=== PATIENT | female | born 1980 | race Caucasian/White ===

== ENCOUNTER 2017-01-02 20:21 | Emergency (ER) | payer BC ==
[~2017-01-02] VITALS: Ht 162.6 cm; Wt 70.3 kg
[~2017-01-02 20:21] MED LIST: ALBU2.5V4; CYCL10TA9 PO; RT-ALBUINH; SULF1TAB35 PO
--- OUTSIDE RECORDS SUMMARY | 2017-01-02 20:26 | XMS REPORT ---
Author Author TANGELA IRVIN [facility] [employer] Address [address] [place] [address] Care Team Providers Care Industrial Sociologist Name Role Phone PATRICKLORINTANGELA Unavailable PROBLEMS Type Condition ICD9-CM Code [id number] Code Onset Dates Condition Status SNOMED Code Problem Cough R05 Active 61056141 Assessment Asthma exacerbation J45.901 Nov, Active 563669045 Problem Asthma exacerbation J45.901 Active 236502325 Problem Routine health maintenance Z00.00 Active 885869726 Problem Family history of diabetes mellitus Z83.3 Active 938508255 Problem Wheezing R06.2 Active 58597370 Problem Moderate persistent asthma without complication J45.40 Active 133168062 Problem Dental caries K02.9 Active 35910923 ALLERGIES Substance Reaction Event Type Date Status Other antibiotics Unknown Non Drug Allergy Nov, Active SOCIAL HISTORY No smoking Hx information available PLAN OF CARE VITAL SIGNS Height 65 in 2015-11-14 Weight 164 lbs 2015-11-14 Heart Rate 80 bpm 2015-11-14 Respiratory Rate 16 2015-11-14 Oximetry 92 % 2015-11-14 BMI 27.29 kg/m2 2015-11-14 Blood pressure systolic 100 mmHg 2015-11-14 Blood pressure diastolic 60 mmHg 2015-11-14 MEDICATIONS Medication Instructions Dosage Frequency Start Date End Date Duration Status Albuterol Sulfate (2.5 MG/3ML) 0.083% Inhalation Three times a day 1 nebule in machine 8h Nov, 10 days Active Ventolin HFA 108 (90 Base) MCG/ACT Inhalation every 4 hrs as needed for shortness of air 2 puffs as needed Nov, 30 days Active PredniSONE 10 mg Orally Once a day 4 tabs x 4days, 3 tabs x 3 days, 2 tabs x 2 days then 1 tab x 1 24h Nov, Nov, 10 days Active RESULTS No Results PROCEDURES Procedure Date Ordered Related Diagnosis Body Site MEASURE BLOOD OXYGEN LEVEL Nov 14, 2015 SOLUMEDROL (UP TO 125 MG) Nov 14, 2015 Office Visit, Est Pt., Level 4 Nov 14, 2015 THER/PROPH/DIAG INJ, SC/IM Nov 14, 2015 NEB/MDI RX INITIAL Nov 14, 2015 IMMUNIZATIONS Vaccine Route Administration Date Status SOLUMEDROL (UP TO 125 MG) IM Intramuscular Nov 14, 2015 Administered
--- OUTSIDE RECORDS SUMMARY | 2017-01-02 20:26 | XMS REPORT ---
Author Author VALENTINE ARNOLD Organization [employer] Address Unknown Phone Unavailable Care Team Providers Care Marine Equipment Research Engineer Name Role Phone VALENTINE ARNOLD CP Unavailable Allergies No Known Allergies Problems Problem Type Condition Code Onset Dates Condition Status Problem Wheezing R06.2 Active Problem Dental caries K02.9 Active Problem Family history of diabetes mellitus Z83.3 Active Assessment Moderate persistent asthma without complication J45.40 Active Problem Cough R05 Active Problem Encounter for screening for malignant neoplasm of cervix Z12.4 Active Problem Encounter for screening breast examination Z12.39 Active Problem Encounter for well woman exam Z01.419 Active Problem Routine health maintenance Z00.00 Active Problem Moderate persistent asthma without complication J45.40 Active Problem Screening for STD (sexually transmitted disease) Z11.3 Active Problem Asthma exacerbation J45.901 Active Medications No Known Medications Procedures Procedure Coding System Code Date NEB/MDI DEMO CPT-4 03806 Feb 04, 2016 SPIROMETRY CPT-4 39087 Feb 04, 2016 RESPIRATORY FLOW VOLUME LOOP CPT-4 01608 Feb 04, 2016 SPRIOMETRY CHALLENGE CPT-4 91118 Feb 04, 2016 Results Name Result Date Reference Range Unit Abnormality Flag PULMONARY EDUCATION (IN-HOUSE) RESPIRATORY FLOW VOLUME LOOP (IN-HOUSE) BRONCHODILATION PRE/POST (IN-HOUSE) Summary Purpose [employer] Submission
--- OUTSIDE RECORDS SUMMARY | 2017-01-02 20:26 | XMS REPORT ---
Author Author VALENTINE ARNOLD Organization [employer] Address Unknown Phone Unavailable Care Team Providers Care Crna Name Role Phone VALENTINE ARNOLD CP Unavailable Allergies No Known Allergies Problems Problem Type Condition Code Onset Dates Condition Status Problem Wheezing R06.2 Active Problem Dental caries K02.9 Active Problem Family history of diabetes mellitus Z83.3 Active Problem Cough R05 Active Problem Encounter for screening for malignant neoplasm of cervix Z12.4 Active Problem Encounter for screening breast examination Z12.39 Active Problem Encounter for well woman exam Z01.419 Active Problem Routine health maintenance Z00.00 Active Problem Moderate persistent asthma without complication J45.40 Active Problem Screening for STD (sexually transmitted disease) Z11.3 Active Problem Asthma exacerbation J45.901 Active Medications Medication Code System Code Instructions Start Date End Date Status Dosage Albuterol Sulfate [facility] [address]-92 (2.5 MG/3ML) 0.083% Inhalation Three times a day Nov 14, 2015 1 nebule in machine Results No Known Results Summary Purpose [employer]ClinicalWorks Submission
--- OUTSIDE RECORDS SUMMARY | 2017-01-02 20:26 | XMS REPORT ---
Author Author VALENTINE ARNOLD Organization [employer] Address Unknown Phone Unavailable Care Team Providers Care Projection Printer Name Role Phone VALENTINE ARNOLD CP Unavailable Allergies, Adverse Reactions, Alerts Substance Reaction Event Type N.K.D.A. Info Not Available Non Drug Allergy Problems Problem Type Condition Code Onset Dates Condition Status Problem Wheezing R06.2 Active Problem Dental caries K02.9 Active Problem Family history of diabetes mellitus Z83.3 Active Problem Encounter for screening for malignant neoplasm of cervix Z12.4 Active Problem Encounter for screening breast examination Z12.39 Active Problem Encounter for well woman exam Z01.419 Active Problem Routine health maintenance Z00.00 Active Problem Moderate persistent asthma without complication J45.40 Active Problem Screening for STD (sexually transmitted disease) Z11.3 Active Problem Asthma exacerbation J45.901 Active Assessment Encounter for screening breast examination Z12.39 Active Assessment Encounter for screening for malignant neoplasm of cervix Z12.4 Active Assessment Diarrhea, unspecified type R19.7 Active Assessment Encounter for well woman exam Z01.419 Active Assessment Screening for STD (sexually transmitted disease) Z11.3 Active Problem Cough R05 Active Medications Medication Code System Code Instructions Start Date End Date Status Dosage Albuterol Sulfate [facility] [address]-95 (2.5 MG/3ML) 0.083% Inhalation Three times a day Nov 14, 2015 1 nebule in machine Metronidazole [facility] [address]-23 500 MG Orally Twice a day Dec 20, 2015 Dec 27, 2015 1 tablet Ventolin HFA [facility] [address]-47 108 (90 Base) MCG/ACT Inhalation every 4 hrs as needed for shortness of air Nov 14, 2015 2 puffs as needed Procedures Procedure Coding System Code Date CULTURE, BACTERIA, OTHER CPT-4 79333 Dec 20, 2015 TRICHOMONAS ASSAY W/OPTIC CPT-4 01622 Dec 20, 2015 SPECIMEN HANDLING CPT-4 56524 Dec 20, 2015 No Charge CPT-4 98340 Dec 20, 2015 PAZ VAG, DNA, DIR PROBE CPT-4 55575 Dec 20, 2015 Preventive Care Est Pt. Age 18-39 CPT-4 14522 Dec 20, 2015 Vital Signs Date/Time: Dec 20, 2015 Cardiac Monitoring Heart Rate 77 bpm Weight 168.2 lbs Height 65 in BMI 27.99 Index Blood Pressure Diastolic 84 mmHg Blood Pressure Systolic 122 mmHg Results Name Result Date Reference Range Unit Abnormality Flag BACTERIAL VAGINOSIS (IN HOUSE) ----Lot # [id number] ----Exp date 20151220 ----RESULTS Negative 20151220 ----Control + 20151220 TRICHOMONAS (IN HOUSE) ----TRICHOMONAS Negative 20151220 ----Control + 20151220 ----Lot # [id number] ----Exp date 20151220 CULTURE, GENITAL ----Genital Culture, Routine Final report [id number] Summary Purpose [employer]Works Submission
--- OUTSIDE RECORDS SUMMARY | 2017-01-02 20:26 | XMS REPORT ---
Author Author CLAYTON VALENTINE Organization [facility] Address [address] [place] [address] Care Team Providers Care Industrial Gas Fitter Name Role Phone ARNOLDVALENTINE Vides Unavailable PROBLEMS Type Condition ICD9-CM Code DPV22-ZP Code Onset Dates Condition Status SNOMED Code Problem Cough R05 Active 71413642 Assessment Routine health maintenance Z00.00 16 Nov, 2015 Active 026563093 Problem Asthma exacerbation J45.901 Active 729622166 Problem Routine health maintenance Z00.00 Active 422205119 Problem Family history of diabetes mellitus Z83.3 Active 435016420 Problem Wheezing R06.2 Active 87598621 Problem Moderate persistent asthma without complication J45.40 Active 515523176 Problem Dental caries K02.9 Active 77990907 ALLERGIES Substance Reaction Event Type Date Status N.K.D.A. Unknown Non Drug Allergy Nov, Unknown SOCIAL HISTORY No smoking Hx information available PLAN OF CARE VITAL SIGNS Height 65 in 2015-11-22 Weight 164.6 lbs 2015-11-22 Heart Rate 76 bpm 2015-11-22 Respiratory Rate 16 2015-11-22 Oximetry 99 % 2015-11-22 BMI 27.39 kg/m2 2015-11-22 Blood pressure systolic 118 mmHg 2015-11-22 Blood pressure diastolic 80 mmHg 2015-11-22 MEDICATIONS Medication Instructions Dosage Frequency Start Date End Date Duration Status PredniSONE 10 mg Orally Once a day 4 tabs x 4days, 3 tabs x 3 days, 2 tabs x 2 days then 1 tab x 1 24h Nov, Nov, 10 days Active Ventolin HFA 108 (90 Base) MCG/ACT Inhalation every 4 hrs as needed for shortness of air 2 puffs as needed Nov, 30 days Active Clindamycin HCl 150 MG Orally every 8 hrs 2 capsules 8h Active Hydrocodone-Acetaminophen 5-325 MG Orally every 6 hrs 1 tablet as needed 6h Active Albuterol Sulfate (2.5 MG/3ML) 0.083% Inhalation Three times a day 1 nebule in machine 8h Nov, 10 days Active RESULTS No Results PROCEDURES Procedure Date Ordered Related Diagnosis Body Site MEASURE BLOOD OXYGEN LEVEL Nov 22, 2015 Office Visit, Est Pt., Level 3 Nov 22, 2015 IMMUNIZATIONS No Known Immunizations
--- OUTSIDE RECORDS SUMMARY | 2017-01-02 20:26 | XMS REPORT ---
Author Author TANGELA IRVIN [facility] [employer] Address [address] [place] [address] Care Team Providers Care Child Welfare Worker Name Role Phone TANGELA IRVIN Unavailable PROBLEMS Type Condition ICD9-CM Code AOU10-WQ Code Onset Dates Condition Status SNOMED Code Problem Cough R05 Active 53290885 Problem Asthma exacerbation J45.901 Active 281180273 Problem Routine health maintenance Z00.00 Active 944316725 Problem Family history of diabetes mellitus Z83.3 Active 440182623 Problem Wheezing R06.2 Active 05999110 Problem Moderate persistent asthma without complication J45.40 Active 683097748 Problem Dental caries K02.9 Active 12328711 ALLERGIES Unknown Allergies SOCIAL HISTORY No smoking Hx information available PLAN OF CARE VITAL SIGNS MEDICATIONS Unknown Medications RESULTS No Results PROCEDURES No Known procedures IMMUNIZATIONS No Known Immunizations
--- OUTSIDE RECORDS SUMMARY | 2017-01-02 20:26 | XMS REPORT ---
Author Author CLAYTONEVELYNVALENTINE Organization [facility] Address [address] [place] [address] Care Team Providers Care Rug Designer Name Role Phone ARNOLDVALENTINE Vides Unavailable PROBLEMS Type Condition ICD9-CM Code [id number] Code Onset Dates Condition Status SNOMED Code Problem Dental caries K02.9 Active 46249835 Problem Encounter for well woman exam Z01.419 Active 530121421 Problem Family history of diabetes mellitus Z83.3 Active 656688800 Problem Routine health maintenance Z00.00 Active 303385357 Problem Moderate persistent asthma with acute exacerbation J45.41 Active 059681772898836 Problem Seasonal allergic rhinitis due to pollen J30.1 Active 31867632 Problem Screening for STD (sexually transmitted disease) Z11.3 Active 680211251 Problem Encounter for screening breast examination Z12.39 Active 135848350 Problem Allergic rhinitis with acute exacerbation of asthma without status asthmaticus J45.901 Active 98458286 Problem Encounter for screening for malignant neoplasm of cervix Z12.4 Active 242729847 ALLERGIES Substance Reaction Event Type Date Status N.K.D.A. Unknown Non Drug Allergy Mar, Unknown SOCIAL HISTORY No smoking Hx information available PLAN OF CARE Activity Details Follow Up 4 Weeks Reason:asthma follow up VITAL SIGNS Height 65 in 2016-03-27 Weight 163.0 lbs 2016-03-27 Temperature 98.0 degrees Fahrenheit 2016-03-27 Heart Rate 94 bpm 2016-03-27 Respiratory Rate 22 2016-03-27 Oximetry after breathing treatment:100 % 2016-03-27 BMI 27.12 kg/m2 2016-03-27 Blood pressure systolic 120 mmHg 2016-03-27 Blood pressure diastolic 76 mmHg 2016-03-27 MEDICATIONS Medication Instructions Dosage Frequency Start Date End Date Duration Status Albuterol Sulfate (2.5 MG/3ML) 0.083% Inhalation Three times a day if needed 3 ml Mar, 6 Months Active Ventolin HFA 108 (90 Base) MCG/ACT Inhalation every 4 hrs 2 puffs as needed 4h Mar, 6 Months Active Qvar 40 MCG/ACT Inhalation Twice a day 1 puff 12h Mar, May, 6 Months Active Singulair 10 mg Orally Once a day 1 tablet in the evening 24h Mar, 90 days Active Ventolin HFA 108 (90 Base) MCG/ACT Inhalation every 4 hrs as needed for shortness of air 2 puffs as needed Nov, 30 days Active Albuterol Sulfate (2.5 MG/3ML) 0.083% Inhalation Three times a day 1 nebule in machine 8h 9 Active Cetirizine HCl 10 MG Orally Once a day 1 tablet 24h Mar, 30 day (s) Active RESULTS No Results PROCEDURES Procedure Date Ordered Related Diagnosis Body Site NEBULIZER TREATMENT 2016-03-27 N/A MEASURE BLOOD OXYGEN LEVEL Mar 27, 2016 Office Visit, Est Pt., Level 3 Mar 27, 2016 NEB/MDI RX INITIAL Mar 27, 2016 IMMUNIZATIONS No Known Immunizations
--- OUTSIDE RECORDS SUMMARY | 2017-01-02 20:27 | XMS REPORT ---
Author Author CLAYTON VALENTINE Organization [facility] Address [address] [place] [address] Care Team Providers Care Sales Forecast Analyst Name Role Phone ARNOLDVALENTINE Vides Unavailable PROBLEMS Type Condition ICD9-CM Code NKF69-OO Code Onset Dates Condition Status SNOMED Code Problem Screening for STD (sexually transmitted disease) Z11.3 Active 388848144 Problem Encounter for screening breast examination Z12.39 Active 243957939 Problem GERD without esophagitis K21.9 Active 836142030 Problem Moderate persistent asthma with acute exacerbation J45.41 Active 559160653285803 Problem Encounter for well woman exam Z01.419 Active 824345763 Problem Encounter for screening for malignant neoplasm of cervix Z12.4 Active 525119654 Problem Seasonal allergic rhinitis due to pollen J30.1 Active 12859361 Problem Allergic rhinitis with acute exacerbation of asthma without status asthmaticus J45.901 Active 26703264 ALLERGIES No Information SOCIAL HISTORY Never Assessed PLAN OF CARE VITAL SIGNS MEDICATIONS Medication Instructions Dosage Frequency Start Date End Date Duration Status Tamiflu 75 MG Orally Twice a day 1 capsule 12h May, 5 day(s) Active Zofran ODT 4 MG Orally 2 times a day 1 tablet on the tongue and allow to dissolve 12h May, 5 days Active RESULTS No Results PROCEDURES No Known procedures IMMUNIZATIONS No Known Immunizations MEDICAL (GENERAL) HISTORY Type Description Date Medical History Asthma Medical History Bronchitis Medical History Pet allergies Medical History Seasonal Allergies Surgical History Tubal ligation 04/2003 Hospitalization History childbirth only
--- OUTSIDE RECORDS SUMMARY | 2017-01-02 20:28 | XMS REPORT | Continuity of Care Document ---
Author Author [facility] Address Unknown Phone Unavailable Allergies Medications Problems Date Dx Coded Attending Type Code Diagnosis Diagnosed By 10/04/2007 466.0 BRONCHITIS, ACUTE 10/04/2007 LAUREN PISANO DO 466.0 BRONCHITIS, ACUTE 10/04/2007 [employer]CH SALES AND SERVICE REPRESENTATIVE, SELENE R 466.0 BRONCHITIS, ACUTE 10/04/2007 [employer] SALES AND SERVICE REPRESENTATIVE, SELENE R 466.0 BRONCHITIS, ACUTE 08/31/2008 V06.5 DT, TETANUS-DIPHTHERIA [Td] 08/31/2008 LAUREN PISANO DO V06.5 DT, TETANUS-DIPHTHERIA [Td] 08/31/2008 [employer] BRANCH SALES AND SERVICE REPRESENTATIVE, SELENE R V06.5 DT, TETANUS-DIPHTHERIA [Td] 08/31/2008 DEL BRANCH SALES AND SERVICE REPRESENTATIVE, SELENE R V06.5 DT, TETANUS-DIPHTHERIA [Td] 04/21/2010 034.0 STREPTOCOCCAL SORE THROAT 04/21/2010 780.60 FEVER UNSPECIFIED 04/21/2010 LAUREN PISANO DO 034.0 STREPTOCOCCAL SORE THROAT 04/21/2010 LAUREN PISANO DO 780.60 FEVER UNSPECIFIED 04/21/2010 [employer] SALES AND SERVICE REPRESENTATIVE, SELENE R 034.0 STREPTOCOCCAL SORE THROAT 04/21/2010 [employer] SALES AND SERVICE REPRESENTATIVE, SELENE R 780.60 FEVER UNSPECIFIED 04/21/2010 [employer] BR[employer] SALES AND SERVICE REPRESENTATIVE, SELENE R 034.0 STREPTOCOCCAL SORE THROAT 04/21/2010 [employer] SALES AND SERVICE REPRESENTATIVE, SELENE R 780.60 FEVER UNSPECIFIED 07/18/2012 786.07 WHEEZING 07/18/2012 786.2 COUGH 07/18/2012 LAUREN PISANO DO 786.07 WHEEZING 07/18/2012 LAUREN PISANO DO 786.2 COUGH 07/18/2012 [employer] SALES AND SERVICE REPRESENTATIVE, SELENE R 786.07 WHEEZING 07/18/2012 [employer] BR[employer] SALES AND SERVICE REPRESENTATIVE, SELENE R 786.2 COUGH 07/18/2012 [employer] SALES AND SERVICE REPRESENTATIVE, SELENE R 786.07 WHEEZING 07/18/2012 SELENE MATHIS APRN 786.2 COUGH 05/19/2013 SELENE MATHIS APRN 719.46 PAIN IN JOINT INVOLVING LOWER LEG 05/19/2013 SELENE MATHIS APRN 719.46 PAIN IN JOINT INVOLVING LOWER LEG 06/23/2013 SELENE MATHIS APRN 709.9 UNSPECIFIED DISORDER OF SKIN AND SUBCUTANEOUS TISSUE Procedures Code [place] [address] OXIMETRY 2012 71447 ROUTINE VENIPUNCTURE 01/20/2013 66922 CBC 01/20/2013 02363 MYCOPLASMA ANTIBODY 01/20/2013 Results Encounters ACCT No. Visit Date/Time Discharge Status Pt. Type Provider Facility Loc./Unit Complaint [id number] 06/23/2013 13:52:00 06/23/2013 23: 59:59 [facility] Outpatient SELENE MATHIS APRN [id number] 05/19/2013 11:44:00 05/19/2013 23: 59:59 [facility] Outpatient SELENE MATHIS APRN [id number] 01/20/2013 13:43:00 01/20/2013 23: 59:59 [facility] Outpatient LAUREN PISANO DO [id number] 07/18/2012 14:36:00 Document Registration
--- NOTE | 2017-01-02 20:29 | ED Upper Extremity ---
General Stated Complaint: L ELBOW PAIN FROM FALL Source: patient Exam Limitations: no limitations History of Present Illness Time seen by provider: 20:28 Initial Comments To ER with history of left elbow pain that began just prior to arrival when she was mopping the floor and slipped in some wet water. She is unable to flex her arm and keeps it fully extended. Onset: just prior to arrival Severity: moderate Pain/Injury Location: left elbow Method of Injury: fell Modifying Factors: Worse With Movement Allergies and Home Medications Allergies Coded Allergies: No Known Drug Allergies (Unverified , 01/25/16) Home Medications Albuterol Sulfate 18 Gm Hfa.aer.ad, #18 (Reported) Albuterol Sulfate 2.5 Mg/3 Ml Vial.neb, #75 (Reported) Beclomethasone Dipropionate 8.7 Gm Aer.w.adap, (Reported) Montelukast Sodium 10 Mg Tablet, (Reported) Omeprazole 20 Mg Capsule., (Reported) Constitutional: see HPI EENTM: see HPI Respiratory: no symptoms reported Cardiovascular: no symptoms reported Genitourinary: no symptoms reported Musculoskeletal: see HPI Skin: no symptoms reported Psychiatric/Neurological: No Symptoms Reported Past Judlyii-Ppvakr-Nzbtwz Hx Patient Social History Recent Foreign Travel: No Contact w/Someone Who Travel: No Recent Hopitalizations: No Immunizations Up To Date Tetanus Booster (TDap): Unknown Seasonal Allergies Seasonal Allergies: No Surgeries Surgeries: Tubal Ligation Respiratory Respiratory Disorders: Asthma, Chronic Bronchitis Currently Using CPAP: No Currently Using BIPAP: No Reproductive System Hx Reproductive Disorders: No EXPENSE ANALYST History: Tubal Ligation Physical Exam Vital Signs Vital Sign - Last 12Hours 01/02/17 20:25 Temp 92.2 Pulse 89 Resp 20 B/P (MAP) 143/94 Pulse Ox 94 O2 Delivery Room Air Capillary Refill : General Appearance: WD/WN, no apparent distress HEENT: PERRL/EOMI, normal ENT inspection Neck: non-tender, full range of motion Respiratory: no respiratory distress, no accessory muscle use Gastrointestinal: non tender, soft Shoulder: normal inspection Elbow/Forearm: Left, limited ROM, pain, soft tissue tenderness Wrist: Yes normal inspection, Yes non-tender Hand: normal inspection, non-tender, Left Neurologic/Psychiatric: alert, normal mood/affect, oriented x 3 Skin: normal color, warm/dry Progress/Results/Core Measures Results/Orders My Orders Orders - SHELBIE THORNTON APRN Elbow, Left, 3 Views (01/02/17 20:28) Hydrocodone/Apap 5/325 Tablet (Lortab 5 (01/02/17 20:30) Medications Given in ED Current Medications Medications Dose Ordered Sig/Marla Route Start Time Stop Time Status Last Admin Dose Admin Acetaminophen/ Hydrocodone Bitart 1 tab ONCE ONCE PO 01/02/17 20:30 01/02/17 20:31 DC 01/02/17 20:34 1 TAB Vital Signs/I&O Vital Sign - Last 12Hours 01/02/17 20:25 Temp 92.2 Pulse 89 Resp 20 B/P (MAP) 143/94 Pulse Ox 94 O2 Delivery Room Air Departure Impression Impression: Primary Impression: Elbow contusion Disposition: HOME, SELF-CARE Condition: Stable Departure-Patient Inst. Decision time for Depature: 20:29 Referrals: [facility] (PCP/Family) Primary Care Physician Patient Instructions: Contusion (DC) Add. Discharge Instructions: 1. Use Tylenol and Motrin for pain. Use an ice pack to the elbow as needed to help with pain. Use this for 30 minutes about every 1-2 hours. Wear the sling as needed for comfort. If you have persistent pain next week follow-up with your doctor for repeat imaging. SHELBIE THORNTON APRN Jan 02, 2017 20:29
[2017-01-02] MEDS ORDERED: HYDROcodone/APAP 5 MG/325 MG (LORTAB) TAB PO ONE (20:30)
--- NOTE | 2017-01-02 20:46 | Diagnostic Imaging Report ---
INDICATION: Fall. FINDINGS: 3 views show good alignment of the radius and normal. Articulating surfaces are smooth. Joint spaces are well maintained. There are no fractures. No joint effusion. IMPRESSION: Normal left elbow. Dictated by: Dictated on workstation # [id number]
[2017-01-02] MEDS ORDERED: BECL8.7A6 (20:47)
[2017-01-02] MEDS ORDERED: OMEP20CA12 (20:47)
[2017-01-02] MEDS ORDERED: MONT10TA24 (20:47)
[2017-01-02 20:58] VITALS: BP 143/94
== END 2017-01-02 20:58 | disposition home or self-care (01) ==
LOC: EDUNIT# 20:21 → ER 20:22
DX: S50.02XA Contusion of left elbow, initial encounter (principal); J44.9 Chronic obstructive pulmonary disease, unspecified; Z98.51 Tubal ligation status; W01.0XXA Fall on same level from slipping, tripping and stumbling without subsequent striking against object, initial encounter; Y93.E5 Activity, floor mopping and cleaning
CPT/HCPCS: 73080; 99283

== ENCOUNTER → 2017-07-03 | Outpatient (CLI) | payer BC ==
[~2017-07-03] MED LIST changes: +BECL8.7A6; +MONT10TA24; +OMEP20CA12
--- NOTE | 2017-07-03 14:53 | Diagnostic Imaging Report ---
PROCEDURE: MRI lumbar spine. TECHNIQUE: Multiplanar, multisequence MRI of the lumbar spine was performed without contrast. INDICATION: Back pain. There are no prior studies available for comparison. FINDINGS: The T2 sagittal images show the vertebral body heights and alignment to be generally within normal limits. There is mild desiccation of the disc at L4-L5 and L5-S1 and the disc space at L5-S1 is narrowed. There is a slight disc bulge centrally at L5-S1. The disc effaces the ventral aspect of the thecal sac and narrows the AP diameter to approximately 12.9 mm. There is moderate neural foraminal narrowing on the right at L5-S1 and mild neural foraminal narrowing on the left. There is also a disc bulge essentially at the L4-L5 level. The AP diameter of thecal sac measures 11.2 mm. There does not appear to be any significant neural foraminal narrowing at this level. The remainder of the lumbar spine is unremarkable for spinal stenosis or nerve root encroachment. There is no abnormal signal arising from the cord or the vertebral bodies to indicate an acute abnormality. There is no sign of a paraspinal mass. IMPRESSION: 1. There is moderate degenerative disc disease at L4-L5 and L5-S1. There is no evidence for central stenosis at either of these levels, but there does seem to be narrowing of the neural foramen on the right at L5-S1. 2. The remainder of the lumbar spine is unremarkable for spinal stenosis or nerve root encroachment. 3. There is no sign of an acute bony abnormality or cord lesion. Dictated by: Dictated on workstation # [id number]
== END ==
LOC: RAD 12:42
PROVIDERS: ATTEND Nurse Practitioner Family
DX: M51.17 Intervertebral disc disorders with radiculopathy, lumbosacral region (principal)
CPT/HCPCS: 72148

== ENCOUNTER 2018-03-19 13:47 | Emergency (ER) | payer BC, OTHER ==
[~2018-03-19] VITALS: Ht 162.6 cm; Wt 63.5 kg
--- NOTE | 2018-03-19 14:17 | ED Upper Extremity ---
General Chief Complaint: Upper Extremity Stated Complaint: LEFT HAND SMASHED IN DOOR Nursing Triage Note: THE PT IS AMBULATORY TO THE ROOM WITHOUT DIFFICULTY. NO DISTRESS IS SEEN ON ARRIVAL. NO OUTWARD SX OF INJURY ARE VISIBLE TO THE LEFT HAND. LOC IS NORMAL FOR THE PT. Nursing Sepsis Screen: No Definite Risk Source: patient Exam Limitations: no limitations History of Present Illness Date Seen by Provider: Mar 19, 2018 Time Seen by Provider: 13:50 Initial Comments Patient is a 38-year-old female who presents to the emergency room with complaints of left hand pain after closing her left hand door. She reports that the door closed just across to her hand at the base of her fingers. There is no visible ecchymosis or abrasions to the hand. Denies need for pain medication at this time. Onset: just prior to arrival Pain/Injury Location: left hand Modifying Factors: Worse With Movement Allergies and Home Medications Allergies Coded Allergies: No Known Drug Allergies (Unverified , 01/25/16) Patient Home Medication List Home Medication List Reviewed: Yes Review of Systems Constitutional: no symptoms reported, see HPI Musculoskeletal: see HPI, joint pain (left hand pain) All Other Systems Reviewed Negative Unless Noted: Yes Past Kltdlhl-Finijv-Ucpasx Hx Past Med/Social Hx: Reviewed Nursing Past Med/Soc Hx Patient Social History Recent Foreign Travel: No Contact w/Someone Who Travel: No Recent Infectious Disease Expo: No Recent Hopitalizations: No Physical Abuse: No Sexual Abuse: No Mistreated: No Fear: No Immunizations Up To Date Tetanus Booster (TDap): Unknown Seasonal Allergies Seasonal Allergies: No Past Medical History Surgeries: No Tubal Ligation Respiratory: Yes Asthma, Chronic Bronchitis Currently Using CPAP: No Currently Using BIPAP: No Cardiac: No Neurological: No Reproductive Disorders: No 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 oz. 63.826172tg; BMI Method:Estimated General Appearance: WD/WN, no apparent distress Cardiovascular: normal peripheral pulses, regular rate, rhythm, no edema, no gallop, no JVD, no murmur Respiratory: chest non-tender, lungs clear, normal breath sounds, no respiratory distress, no accessory muscle use Hand: Left, swelling (pain) Neurologic/Psychiatric: alert, normal mood/affect, oriented x 3 Skin: normal color, warm/dry Progress/Results/Core Measures Results/Orders My Orders Vital Signs/I&O Blood Pressure Mean: 93 Diagnostic Imaging Diagonstic Imaging: Xray Plain Films/CT/US/NM/MRI: hand Comments NAME: BRENDON LAUREN [facility] REC#: [id number] PT STATUS: REG ER : 1980 PHYSICIAN: WALE DURHAM ADMIT DATE: 03/19/18/ER Draft Date of Exam:03/19/18 HAND, LEFT, 3 VIEWS INDICATION: Left hand shut in a door. EXAMINATION: Left hand 03/19/2018. Three views of the hand. findings and IMPRESSION: No acute fractures or dislocations. Joint spaces preserved. Dictated on workstation # [id number] Dict: 03/19/18 1421 Trans: 03/19/18 1432 KB [id number] Interpreted by: RYANNE ENRIQUEZ MD Electronically signed by: Reviewed: Reviewed by Me Departure Impression Primary Impression: Contusion of left hand Disposition: HOME, SELF-CARE Condition: Stable/Unchanged Departure-Patient Inst. Decision time for Depature: 14:16 Ref[place]: [facility] [place] Primary Care Physician Patient Instructions: Contusion (DC) Add. Discharge Instructions: Ice to the sore areas at 20 minute intervals. Ibuprofen and Tylenol as directed by the bottle for pain relief. Follow-up with primary care provider as needed. Return back to the emergency room for any worsening symptoms or concerns as needed. All discharge instructions reviewed with patient and/or family. Voiced understanding. WALE DURHAM Mar 19, 2018 14:17
--- NOTE | 2018-03-19 14:37 | Diagnostic Imaging Report ---
INDICATION: Left hand shut in a door. EXAMINATION: Left hand 03/19/2018. Three views of the hand. findings and IMPRESSION: No acute fractures or dislocations. Joint spaces preserved. Dictated by: Dictated on workstation # [id number]
[2018-03-19 14:50] VITALS: BP 115/80
== END 2018-03-19 14:53 | disposition home or self-care (01) ==
LOC: EDUNIT# 13:47 → ER 13:49
DX: S60.222A Contusion of left hand, initial encounter (principal); J44.9 Chronic obstructive pulmonary disease, unspecified; Z98.51 Tubal ligation status; W23.1XXA Caught, crushed, jammed, or pinched between stationary objects, initial encounter
CPT/HCPCS: 73130

== ENCOUNTER 2018-12-04 08:15 | Emergency (ER) | payer BC ==
[~2018-12-04] VITALS: Ht 165.1 cm; Wt 77.2 kg
[~2018-12-04 08:15] MED LIST changes: -OMEP20CA12; +OMEP20CA13
[2018-12-04] MEDS ORDERED: ORPHENADRINE 60 MG/2 ML (NORFLEX) AMP IM STA (08:51)
[2018-12-04] MEDS ORDERED: KETOROLAC 60 MG/2 ML VIAL IM STA (08:51)
--- NOTE | 2018-12-04 08:59 | ED Back Pain ---
General Chief Complaint: Back Problems Stated Complaint: BACK PAIN Nursing Triage Note: Pt to ED in wheelchair. Pt reports waking up this morning and having severe back pain making pt unable to walk without assistance. Pt reports pain is in lower back radiating down L leg. Pt reports hx of spinal stenosis. Pt reports pain of 35/10. Pt denies injury or strain. Nursing Sepsis Screen: No Definite Risk Source of Information: Patient Exam Limitations: No Limitations (ESSENCE RICHARDSON STUDENT) History of Present Illness Date Seen by Provider: Dec 04, 2018 Time Seen by Provider: 08:45 Initial Comments The patient is a 38 y/o female who is here with a chief complaint of low back pain. She reports that she woke up this morning with severe back pain in her lower back that radiates into her left hip. She describes the pain as sharp and stabbing at 10/10. She has had previous bouts of back pain but "never this serious". The patient denies any recent overuse or trauma but does report "cleaning up the yard yesterday". She denies numbness/tingling, loss of strength, loss of bowel/bladder, or recent illnesses. Location: Lumbar Spine Timing/Duration: 1-3 Hours Severity: Moderate Pain/Injury Location: Back Radiation: Buttocks Method of Injury: Unknown Modifying Factors: Worse With Movement Associated Symptoms: No fever, No weakness, No numbness in legs/feet, No ting ling in legs/feet (ESSENCE RICHARDSON STUDENT) Location: Lumbar Spine, Paraspinous Muscles Timing/Duration: 1-3 Hours Severity: Moderate Radiation: Buttocks Method of Injury: Unknown Modifying Factors: Worse With Movement Associated Symptoms: muscle spasms; No fever, No weakness, No numbness in legs/feet, No tingling in legs/feet; lower back pain; No loss of bladder control, No loss of bowel control (SAQIB PEGUERO MD) Allergies and Home Medications Allergies Coded Allergies: No Known Drug Allergies (Unverified , 01/25/16) Patient Home Medication List Home Medication List Reviewed: Yes (SAQIB PEGUERO MD) Review of Systems Constitutional: No fever, No weakness EENTM: No blurred vision, No double vision Cardiovascular: No chest pain, No palpitations Gastrointestinal: No diarrhea, No nausea, No vomiting Genitourinary: No dysuria, No incontinence Musculoskeletal: back pain; No muscle weakness (ESSENCE RICHARDSON STUDENT) Constitutional: see HPI Respiratory: no symptoms reported Cardiovascular: no symptoms reported Gastrointestinal: no symptoms reported Musculoskeletal: see HPI, back pain, muscle pain; No muscle weakness Skin: no symptoms reported Psychiatric/Neurological: No Symptoms Reported (SAQIB PEGUERO MD) Past Ewajzqa-Xrsopn-Jvtcwa Hx Past Med/Social Hx: Reviewed Nursing Past Med/Soc Hx (SAQIB PEGUERO MD) Patient Social History Alcohol Use: Denies Use Recreational Drug Use: No Smoking Status: Never a Smoker 2nd Hand Smoke Exposure: No Recent Foreign Travel: No Contact w/Someone Who Travel: No Recent Infectious Disease Expo: No Recent Hopitalizations: No Physical Abuse: No Sexual Abuse: No (ESSENCE RICHARDSON) Immunizations Up To Date Tetanus Booster (TDap): Unknown (ESSENCE RICHARDSON) Seasonal Allergies Seasonal Allergies: No (ESSENCE RICHARDSON) Past Medical History Surgeries: No Tubal Ligation Respiratory: Yes Asthma, Chronic Bronchitis Currently Using CPAP: No Currently Using BIPAP: No Cardiac: No Neurological: No Last Menstrual Period: Dec 02, 2018 Reproductive Disorders: No 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 oz. 63.749621nl; 28.00 BMI Method:Estimated General Appearance: WD/WN, Mild Distress HEENT: PERRL/EOMI; No Photophobia Cardiovascular: Regular Rate, Rhythm, No Murmur Respiratory: Chest Non Tender, Lungs Clear, Normal Breath Sounds Back: No CVA Tenderness, Decreased Range of Motion Neurologic/Psychiatric: Alert, Oriented x3, No Motor/Sensory Deficits, Normal Mood/Affect Skin: Normal Color, Warm/Dry (ESSENCE RICHARDSON MED STUDENT) General Appearance: WD/WN, Mild Distress Cardiovascular: Regular Rate, Rhythm, No Murmur Respiratory: Lungs Clear, Normal Breath Sounds Back: No CVA Tenderness, Muscle Spasm (paraspinous on the left), Other (tenderness in the area of the left SI joint.) Neurologic/Psychiatric: Alert, Oriented x3 Skin: Normal Color, Warm/Dry (SAQIB PEGUERO MD) Progress/Results/Core Measures Results/Orders Lab Results Laboratory Tests Test 12/04/18 09:20 Range/Units Urine Color YELLOW Urine Clarity CLEAR Urine pH 7 5-9 Urine Specific [place] 1.010 L 1.016-1.022 Urine Protein NEGATIVE NEGATIVE Urine Glucose (UA) NEGATIVE NEGATIVE Urine Ketones NEGATIVE NEGATIVE Urine Nitrite NEGATIVE NEGATIVE Urine Bilirubin NEGATIVE NEGATIVE Urine Urobilinogen NORMAL NORMAL MG/DL Urine Leukocyte Esterase NEGATIVE NEGATIVE Urine RBC (Auto) 1+ H NEGATIVE Urine RBC 5-10 H /HPF Urine WBC NONE /HPF Urine Squamous Epithelial Cells 25-50 H /HPF Urine Crystals NONE /LPF Urine Bacteria NEGATIVE /HPF Urine Casts NONE /LPF Urine Mucus MODERATE H /LPF Urine Culture Indicated NO (SAQIB PEGUERO MD) My Orders Orders - SAQIB PEGUERO MD Ua Culture If Indicated (12/04/18 08:21) Straight Cath For Spec.-Adult (12/04/18 08:51) Hydrocodone/Apap 5/325 Tablet (Lortab 5 (12/04/18 09:00) Ketorolac Injection (Toradol Injection) (12/04/18 08:51) Orphenadrine Injection (Norflex Injectio (12/04/18 08:51) Ondansetron Oral Dissolve Tab (Zofran (12/04/18 09:39) Ondansetron Oral Dissolve Tab (Zofran (12/04/18 09:40) Ed Iv/Invasive Line Start (12/04/18 09:52) Ns Iv 1000 Ml (Sodium Chloride 0.9%) (12/04/18 09:52) (SAQIB PEGUERO MD) Medications Given in ED Current Medications Medications Dose Ordered Sig/Marla Route Start Time Stop Time Status Last Admin Dose Admin Acetaminophen/ Hydrocodone Bitart 1 tab ONCE ONCE PO 12/04/18 09:00 12/04/18 09:01 DC 12/04/18 08:59 1 TAB Sodium Chloride 1,000 ml @ 0 mls/hr Q0M ONCE IV 12/04/18 09:52 12/04/18 09:53 DC 12/04/18 09:57 1,000 MLS/HR (SAQIB PEGUERO MD) Vital Signs/I&O 12/04/18 08:19 Temp 37.5 Pulse 83 Resp 20 B/P (MAP) 131/89 (103) Pulse Ox 93 O2 Delivery Room Air (SAQIB PEGUERO MD) Blood Pressure Mean: 103 Progress Progress Note : Progress Note The patient is resting in the exam room in mild discomfort. She will be administered torodol, cyclobenzaprine, and hydrocodone for pain control. The nurse will straight cath the patient due to contaminated urine specimen. UA to rule out UTI. (ESSENCE RICHARDSON MED STUDENT) Progress Note : Progress Note I have seen and evaluated the patient and agree with above except as indicated. Directed the plan of care. Patient is here with acute low back pain that she noted this morning when she woke up. Denies any recent injury. Denies fever or chills. Denies bowel or bladder incontinence or other concerns. She has not had pain this bad before but states that she does get back pain. She had an MRI of the lumbar spine last year in those results were reviewed by me. Does have temp of 37.5C. We will go ahead and check a UA. Patient is on her period and had significant contamination on clean catch. We will go ahead and do straight catheter specimen. Toradol 60 mg IM, Norflex 60 mg IM and hydrocodone 5/325 one tab by mouth given. Monitor patient. 0956: Patient got nauseated after hydrocodone. Sublingual ondansetron given and ultimately IV started and we will give liter of normal saline. Overall she is feeling better currently. Anticipate discharge when fluids complete. 1032: Discharged home with return precautions. Patient verbalize understanding instructions and agreement with plan. We did discuss potential for steroids. We will hold that at this point and she agrees. Conservative therapy. Recheck in clinic later this week. (SAQIB PEGUERO MD) Departure Impression Primary Impression: Lumbar radiculopathy Disposition: 01 HOME, SELF-CARE Condition: Stable Departure-Patient Inst. Decision time for Depature: 09:56 (ASQIB PEGUERO MD) Referrals: [facility] [place] (PCP/Family) Primary Care Physician Patient Instructions: Radiculopathy (DC), Low Back Pain (DC) Add. Discharge Instructions: All discharge instructions reviewed with patient and/or family. Voiced understanding. Drink plenty of fluids. Follow-up with your doctor in a few days for recheck. You may take ibuprofen 600 mg every 8 hours as needed for pain. You may also take Tylenol/acetaminophen 1000 mg every 8 hours as needed for pain. You may use [id number] Icy Hot with lidocaine patches, Aspercreme with lidocaine patches, Salonpas with lidocaine patches or similar items to area of concern per package directions. Return for worse pain, weakness, numbness between your legs, difficulty with walking or going to the bathroom or other concerns as needed. Copy Copies To 1: LAUREN PISANO JOSHUA K MED STUDENT Dec 04, 2018 08:58 SAQIB PEGUREO MD Dec 04, 2018 09:18
[2018-12-04] MEDS ORDERED: HYDROcodone/APAP 5 MG/325 MG (LORTAB) TAB PO ONE (09:00)
[2018-12-04 09:29] LABS: BILIRUBIN,URINE NEGATIVE (NEGATIVE); CLARITY,URINE CLEAR; COLOR,URINE YELLOW; GLUCOSE, URINE (UA) NEGATIVE (NEGATIVE); KETONES,URINE NEGATIVE (NEGATIVE); LEUKOCYTE ESTERASE ,URINE NEGATIVE (NEGATIVE); NITRITE,URINE NEGATIVE (NEGATIVE); PH,URINE 7 (5-9); PROTEIN,URINE NEGATIVE (NEGATIVE); UROBILINOGEN,URINE NORMAL (NORMAL)
[2018-12-04 09:39] LABS: BACTERIA,URINE NEGATIVE /HPF; SQUAMOUS EPITHELIAL CELL,UR 25-50 /HPF
[2018-12-04] MEDS ORDERED: ONDANSETRON 4 MG (ZOFRAN) ORAL DISSOLVE TAB SL STA (09:39)
[2018-12-04] MEDS ORDERED: ONDANSETRON 4 MG (ZOFRAN) ORAL DISSOLVE TAB ONE (09:40)
--- NOTE | 2018-12-04 09:41 | NUR ---
Pt's BP dropped at this time. Cuff repositioned and taken again. BP 54/42. IV started and Dr. Verdugo notified.
[2018-12-04] MEDS ORDERED: NS IV 1000 ML 1,000 ML IV ONE (09:52)
[2018-12-04 10:40] VITALS: BP 100/70
== END 2018-12-04 10:40 | disposition home or self-care (01) ==
LOC: EDUNIT# 08:15 → ER 08:15
DX: M54.16 Radiculopathy, lumbar region (principal); J45.909 Unspecified asthma, uncomplicated; Z87.39 Personal history of other diseases of the musculoskeletal system and connective tissue; Z98.51 Tubal ligation status
CPT/HCPCS: 51701; 81000; 96360; 96372